=== PATIENT | male | born 1960 | race Caucasian/White ===

== ENCOUNTER 2022-04-28 10:54 | Outpatient (CLI) | payer OTHER, SELFPAY ==
[2022-04-28 14:39] LABS: Albumin* 4.3 g/dL (3.3-5.0); Chloride* 103 mmol/L (96-114); Potassium* 4.4 mmol/L (3.6-5.1); Sodium* 139 mmol/L (135-149)
[2022-04-28 14:41] LABS: Cholesterol* 185 mg/dL (90-199)
[2022-04-28 14:42] LABS: Alanine Aminotransferase* 29 U/L (4-50); Alkaline Phosphatase* 108 U/L (40-150); Aspartate Amino Transferase* 25 U/L (12-35); Bilirubin Total* 0.5 mg/dL (0.1-1.5); Blood Urea Nitrogen* 9 mg/dL (7-30); Calcium* 8.7 mg/dL (8.4-10.6); Carbon Dioxide* 25 mmol/L (20-32); Creatinine* 0.7 mg/dL (0.5-1.5); Estimated Glomerular Filt Rate 105 ml/min; Glucose* 102 mg/dL (60-115); HDL Cholesterol* 40 mg/dL (>=40); LDL Cholesterol Calculated 111 mg/dL (<100); Total Protein* 7.4 g/dL (6.0-8.3); Triglycerides* 172 mg/dL (40-149)
[2022-04-28 14:59] LABS: PSA Screen* 2.52 ng/mL (0.10-4.00)
== END 2022-04-28 10:55 | disposition home or self-care (01) ==
PROVIDERS: PCP Family Medicine; Visit Provider Physician Assistant Medical
DX: Z00.00 Encounter for general adult medical examination without abnormal findings (principal); I10 Essential (primary) hypertension; E78.5 Hyperlipidemia, unspecified; Z12.5 Encounter for screening for malignant neoplasm of prostate
CPT/HCPCS: 80053; 80061; 84153

== ENCOUNTER 2023-07-03 07:30 | Outpatient (CLI) | payer OTHER, SELFPAY | END 2023-07-03 07:31 | disposition home or self-care (01) | LOC: NFLDREF 07-04 02:56 | PROVIDERS: PCP Physician Assistant Medical; Referring Provider Physician Assistant Medical; Visit Provider Physician Assistant Medical | DX: E78.2 Mixed hyperlipidemia (principal); I10 Essential (primary) hypertension; Z12.5 Encounter for screening for malignant neoplasm of prostate | CPT/HCPCS: 80053; 80061; 84153 ==

== ENCOUNTER 2023-07-10 10:34 | Outpatient (CLI) | payer OTHER, SELFPAY | END 2023-07-10 10:35 | disposition home or self-care (01) | LOC: FRMREF 10:35 | PROVIDERS: PCP Physician Assistant Medical; Visit Provider Physician Assistant Medical | DX: Z00.00 Encounter for general adult medical examination without abnormal findings (principal); E87.6 Hypokalemia | CPT/HCPCS: 84132 ==

== ENCOUNTER 2023-07-14 08:26 | Outpatient (CLI) | payer OTHER, SELFPAY | END 2023-07-14 08:27 | disposition home or self-care (01) | LOC: NFLDREF 07-15 12:02 | PROVIDERS: PCP Physician Assistant Medical; Referring Provider Physician Assistant Medical; Visit Provider Physician Assistant Medical | DX: E87.6 Hypokalemia (principal) | CPT/HCPCS: 84132 ==

== ENCOUNTER 2023-10-21 09:03 | Outpatient (CLI) | payer OTHER, SELFPAY | END 2023-10-21 09:04 | disposition home or self-care (01) | LOC: NFLDREF 10-22 10:22 | PROVIDERS: PCP Physician Assistant Medical; Referring Provider Physician Assistant Medical; Visit Provider Physician Assistant Medical | DX: E87.6 Hypokalemia (principal) | CPT/HCPCS: 84132 ==

== ENCOUNTER 2024-06-10 12:37 | Outpatient (CLI) | payer OTHER, SELFPAY | END 2024-06-10 12:38 | disposition home or self-care (01) | LOC: RAD 12:38 | PROVIDERS: PCP Physician Assistant Medical; Visit Provider Physician Assistant Medical | DX: Z86.79 Personal history of other diseases of the circulatory system (principal) | CPT/HCPCS: 93306 ==

== ENCOUNTER 2024-06-23 13:45 | Outpatient (CLI) | payer OTHER, SELFPAY ==
[2024-06-23 14:31] VITALS: BP 156/94; PULSE 103
--- NOTE | 2024-06-23 14:44 | W.PM.STED ---
Stress Test Note Date Date Seen: 06/23/24 Date of test: 06/23/24 Providers Primary care provider: Ginger Riley Stress test physician: Stephenie Lawson Stress Test Note Stress test ordered: Stress Echo Indication for test: Fatigue, concerning symptoms for ischemic disease Stress test medicine: None Results discussion: Resting EKG: Sinus rhythm, 83 beats per minute. Resting blood pressure: 142/97 Stress test: Patient was consented on standard [place] protocol exercise treadmill stress echo, agreed to proceed. Patient was able to exercise 6 minutes 31 seconds, requesting to stop due to shortness of breath, patient had no chest pain. This was equivalent to 7.9 Mets. Patient achieved a maximum heart rate of 136 beats per minute which was 102% of a calculated target heart rate of 133. Patient had a maximal blood pressure of 240/100, given a rate pressure product of 31,440. Of note patient is hypertensive but withheld medicines for this stress test. There is no diagnostic EKG criteria for ischemia but there was significant artifact during exercise. In recovery tracing was quite good and no ischemia noted, no arrhythmia throughout the stress test. Impression: Subjectively negative, objectively negative EKG portion of this stress test. Follow up suggested: Patient is discharged home in stable condition. He is aware that the burglar alarm operator will be reading the echo to couple this for a full formal diagnostic report. He will await a call from his primary care provider whom ordered the test.
== END 2024-06-23 13:46 | disposition home or self-care (01) ==
LOC: STRESS 13:45
PROVIDERS: PCP Physician Assistant Medical; Visit Provider Physician Assistant Medical
DX: I51.89 Other ill-defined heart diseases (principal); R53.83 Other fatigue
CPT/HCPCS: 93016; 93325; 93351

== ENCOUNTER 2024-07-25 07:34 | Outpatient (CLI) | payer OTHER, SELFPAY | END 2024-07-25 07:35 | disposition home or self-care (01) | LOC: NFLDREF 07-27 13:10 | PROVIDERS: PCP Physician Assistant Medical; Referring Provider Physician Assistant Medical; Visit Provider Physician Assistant Medical | DX: Z00.00 Encounter for general adult medical examination without abnormal findings (principal); I10 Essential (primary) hypertension; E78.2 Mixed hyperlipidemia; E03.8 Other specified hypothyroidism; E66.9 Obesity, unspecified; E87.6 Hypokalemia | CPT/HCPCS: 80053; 80061; 84439; 84443 ==

== ENCOUNTER 2025-08-25 09:05 | Outpatient (CLI) | payer OTHER, SELFPAY | END 2025-08-25 09:06 | disposition home or self-care (01) | LOC: NFLDREF 09-01 06:11 | PROVIDERS: PCP Physician Assistant Medical; Referring Provider Physician Assistant Medical; Visit Provider Physician Assistant Medical | DX: I10 Essential (primary) hypertension (principal); E78.2 Mixed hyperlipidemia | CPT/HCPCS: 80053; 80061; 84443; G0103 ==

== ENCOUNTER 2025-09-06 06:57 | Outpatient (CLI) | payer OTHER, SELFPAY ==
--- NOTE | 2025-09-06 07:15 | CRLHL7_ITS ---
For Patients: As a result of the Century Cures Act, medical imaging exams and procedure reports are released immediately into your electronic medical record. You may view this report before your referring provider. If you have questions, please contact your health care provider. INDICATION: Low back pain. TECHNIQUE: Multisequence multiplanar MRI of the lumbar spine without the use of intravenous contrast. COMPARISON: None available. FINDINGS: Normal vertebral alignment and stature. Multilevel disc height loss most pronounced at L4-L5, where there is Modic type 2 degenerative endplate signal. The conus medullaris terminates normally at the L1 level. T12-L1 L1-L2, and L2-L3: Shallow symmetric disc bulging. Mild facet arthrosis. No significant spinal canal or neural foraminal stenosis. L3-L4: Symmetric disc bulge with 5 mm superimposed left paracentral disc protrusion. Moderate facet joint arthrosis with a 9 mm anteriorly projecting left facet joint synovial cyst. Moderate-severe spinal canal stenosis with severe narrowing of the left lateral recess. Mild left and no significant right neural foraminal narrowing. L4-L5: Symmetric disc bulge. Moderate facet joint arthrosis. Mild spinal canal stenosis with narrowing of the lateral recesses. Mild-moderate bilateral neural foraminal narrowing. L5-S1: Shallow symmetric disc bulge. Mild facet joint arthrosis. No significant spinal canal or neural foraminal stenosis. IMPRESSION: 1. At L3-L4, left paracentral disc protrusion and anteriorly projecting left facet joint synovial cyst resulting in moderate-severe spinal canal stenosis with severe narrowing of the left lateral recess. 2. At L4-L5, mild spinal canal stenosis and mild-moderate bilateral neural foraminal narrowing. 3. Multilevel disc height loss with Modic type 2 degenerative endplate signal at L4-L5. Dictated by Felipe Ocasio MD @ 09/07/2025 5:53:20 AM (Electronically Signed)
== END 2025-09-06 06:58 | disposition home or self-care (01) ==
LOC: MRI 06:58
PROVIDERS: PCP Physician Assistant Medical; Visit Provider Physician Assistant Medical
DX: M51.26 Other intervertebral disc displacement, lumbar region (principal); G89.29 Other chronic pain
CPT/HCPCS: 72148